=== PATIENT | female | born 2000 | race Native Hawaiian/Other Pacific Islander ===

== ENCOUNTER 2019-04-11 12:47 | Emergency (ER) | payer OTHER ==
[~2019-04-11] VITALS: Ht 160 cm; Wt 79.4 kg
[2019-04-11 13:41] LABS: PLATELET COUNT 280 K/uL (152-353)
[2019-04-11 13:47] LABS: POTASSIUM 3.6 mmol/L (3.6-5.2)
[2019-04-11 14:36] VITALS: BP 118/73; TEMP 98.2
== END 2019-04-11 14:38 | disposition home or self-care (01) ==
LOC: ED 12:47
PROVIDERS: Emergency Medicine Emergency Medical Services
DX: K52.89 Other specified noninfective gastroenteritis and colitis (principal)
CPT/HCPCS: 80053; 81000; 81025; 85027; 99283

== ENCOUNTER 2019-05-22 14:51 | Emergency (ER) | payer OTHER ==
[~2019-05-22] VITALS: Ht 160 cm; Wt 88.5 kg
[2019-05-22 18:11] VITALS: BP 109/53; TEMP 97
== END 2019-05-22 18:16 | disposition home or self-care (01) ==
LOC: ED 14:51
DX: R10.2 Pelvic and perineal pain (principal)
CPT/HCPCS: 81000; 81025; 99283